=== PATIENT | male | born 1990 | race Caucasian/White ===

== ENCOUNTER 2019-08-01 08:57 | Emergency (ER) | payer SELFPAY ==
[2019-08-01 09:12] VITALS: BP 148/77; PULSE 78; RESP 16; TEMP 37.3; O2SAT 100
--- NOTE | 2019-08-01 09:24 | ED.BACK ---
HPI - Back Pain/Injury General Chief Complaint: Back Pain/Injury Stated Complaint: Left side kidney pain Time Seen by Provider: 08/01/19 09:20 Source: patient and RN notes reviewed Mode of arrival: ambulatory Limitations: no limitations History of Present Illness HPI Narrative: 29-year-old male presents with concern for 1 week history of left-sided low back pain. He denies hematuria, frequency, urgency, scrotal pain, scrotal swelling. Denies nausea, vomiting, diarrhea, fever, abdominal pain. Reports he cannot find a position of comfort when he moves a certain way or when he walks it exacerbates the pain. Reports the pain is a dull ache. He denies any perianal anesthesia, loss of bowel or bladder function, weakness in any extremity. Denies any injury. Reports he works on his feet has a physical job. Denies any history of low back injury, denies history of kidney stones, family history of kidney stones, heavy alcohol use, dehydration. MD elicited complaint: back pain Related Data Allergies Allergy/AdvReac Type Severity Reaction Status Date / Time No Known Allergies Allergy Verified 08/01/19 09:04 Review of Systems Review of Systems: Narrative: CONSTITUTIONAL: Denies malaise, chills, sweats, or fever. CARDIOVASCULAR: Denies chest pain, palpitations, or edema. RESPIRATORY: Denies cough or dyspnea. GASTROINTESTINAL: Denies abdominal pain, nausea, vomiting, diarrhea, bloody, or mucous stools. GENITOURINARY: Denies dysuria or hematuria. SKIN: Denies rash or itching. MUSCULOSKELETAL: Reports left low back pain. Denies joint pain, or myalgia. NEUROLOGIC: Denies numbness, weakness, or headache. PSYCHIATRIC: Denies anxiety or depression. All systems reviewed & are unremarkable except as noted in HPI and below PMFSH Social History Social History Gender identity (if verbalized by the patient): Male Comments At time of signature, agree with nursing past medical, surgical, social and family history. There is no relevant family history pertinent to the presenting complaint Exam Narrative: Exam Narrative: GENERAL: Well-appearing, well-nourished, and in no acute distress. HEAD: Normocephalic, atraumatic. EYES: PERRLA and EOMI. NECK: Supple. No lymphadenopathy. CHEST: Clear to auscultation. No respiratory distress. HEART: Regular rate and rhythm. Distal pulses palpable and equal, cap refill <3 seconds ABDOMEN: Soft, nontender, nondistended, normal active bowel sounds, no palpable or pulsatile masses. No CVA tenderness MUSCULOSKELETAL: Normal range of motion and strength in all extremities; 5/5 strength with hip flexion and extension, dorsiflexion and extension, knee flexion and extension, plantar flexion and extension. Normal sensation in dermatomal distributions with sensitivity to light touch and pain. No midline back tenderness to palpation. No paraspinal tenderness. Transfers from lying to sitting to standing. SKIN: Warm, dry, no rash. No ecchymosis, erythema, open wounds to back. NEURO: No focal deficits. Alert and oriented x3. Reflexes intact. Normal gait. PSYCH: Normal mood and affect Course Course Emergency Course: Patient is aware of diagnosis, understands and agrees to treatment plan. Anticipatory guidance given. Patient agrees to follow-up as directed and is aware of reasons to seek care at the emergency department. Portions of this record may have been created with voice recognition software Vital Signs Vital signs: Vital Signs Temperature 99.1 F 08/01/19 09:12 Pulse Rate 78 08/01/19 09:12 Respiratory Rate 16 08/01/19 09:12 Blood Pressure 148/77 H 08/01/19 09:12 Pulse Oximetry 100 08/01/19 09:12 Temperature 99.1 F 08/01/19 09:12 Pulse Rate 78 08/01/19 09:12 Respiratory Rate 16 08/01/19 09:12 Blood Pressure 148/77 H 08/01/19 09:12 Pulse Oximetry 100 08/01/19 09:12 Reviewed. Pt has been instructed to follow up with his primary care provider within the next week regarding his elevated
== END 2019-08-01 09:37 | disposition home or self-care (01) ==
PROVIDERS: Emergency Provider Nurse Practitioner
DX: M54.5 Low back pain (principal)
CPT/HCPCS: 81003; 99213; G0463